=== PATIENT | male | born 1960 | race Caucasian/White ===

== ENCOUNTER 2018-07-18 18:26 | Emergency (ER) | payer OTHER ==
[~2018-07-18] VITALS: Ht 175.3 cm; Wt 108.0 kg
[2018-07-18] MEDS ORDERED: LISINOPRIL-HCT1 EAC2 PO (18:32)
[2018-07-18] MEDS ORDERED: METFORMIN HCL500 MG PO (18:33)
[2018-07-18] MEDS ORDERED: VISTARIL 25 MG25 M1 PO (18:34)
[2018-07-18] MEDS ORDERED: ZANTAC 150MG T150 M1 PO (18:35)
[2018-07-18 18:49] LABS: ABSOLUTE BASOPHILS 0.1 thou/uL (0.0-0.2); ABSOLUTE EOSINOPHILS 0.7 thou/uL (0.0-0.7); ABSOLUTE LYMPHOCYTES 2.6 thou/uL (0.8-5.3); ABSOLUTE MONOCYTES 0.5 thou/uL (0.0-1.2); ABSOLUTE NEUTROPHILS 4.3 thou/uL (1.6-8.1); BASOPHILS 1.3 %; EOSINOPHILS 8.6 %; HEMATOCRIT 47.4 % (42.0-52.0); HEMOGLOBIN 16.1 gm/dL (14.0-18.0); LYMPHOCYTES 31.7 %; MCH 27.7 pg (26.0-34.0); MCV 81.4 fL (80.0-100.0); MONOCYTES 6.3 %; MPV 11.1 fl. (7.2-11.1); NUCLEATED RBCS 0 /100WBC; PLATELET COUNT* 125 thou/uL (150-400); POLYS 52.1 %; RBC 5.82 mil/uL (4.50-6.00); RDW-CV 15.3 % (10.5-14.5); WBC 8.2 thou/uL (4.0-11.0)
[2018-07-18 18:59] LABS: APTT 24.6 Seconds (25.0-31.3); PROTIME 9.9 Seconds (9.20-11.50)
[2018-07-18 19:04] LABS: ANION GAP 15 mmol/L (7-16); BUN 16 mg/dL (7-18); CALCIUM 8.9 mg/dL (8.5-10.1); CHLORIDE 102 mmol/L (98-107); CO2 23 mmol/L (21-32); CREATININE 1.2 mg/dL (0.6-1.3); GLUCOSE 203 mg/dL (70-99); POTASSIUM 3.2 mmol/L (3.5-5.1); SODIUM 140 mmol/L (136-145)
[2018-07-18 19:10] LABS: ALBUMIN 3.6 g/dL (3.4-5.0); ALKALINE PHOSPHATASE 92 U/L (46-116); NT-PRO BRAIN NAT PEPTIDE 23 pg/mL (<300); SGOT 24 U/L (15-37); SGPT 40 U/L (30-65); TOTAL BILIRUBIN 0.3 mg/dL (<0.1-1.0); TOTAL PROTEIN 7.4 g/dL (6.4-8.2); TROPONIN-I LEVEL <0.06 ng/mL (<0.06)
[2018-07-18 20:21] LABS: URINE BILIRUBIN NEGATIVE (Negative); URINE BLOOD NEGATIVE (Negative); URINE CLARITY CLEAR; URINE COLOR YELLOW; URINE GLUCOSE-RANDOM TRACE (Negative); URINE KETONES NEGATIVE (Negative); URINE LEUKOCYTES-REFLEX NEGATIVE (Negative); URINE NITRITE-REFLEX NEGATIVE (Negative); URINE PROTEIN NEGATIVE (Negative); URINE SPECIFIC GRAVITY <= 1.005 (1.005-1.030); URINE UROBILINOGEN 0.2 E.U./dl (0.2-1.0)
[2018-07-18] MEDS ORDERED: VENTOLIN HFA 1818 GM INH (20:32)
[2018-07-18] MEDS ORDERED: PREDNISONE 20 M20 M1 PO (20:32)
[2018-07-18] MEDS ORDERED: ZPAK PO (20:32)
[2018-07-18 20:55] VITALS: BP 128/89
--- NOTE | 2018-07-20 11:37 | EKG ---
[place] [address] ELECTROCARDIOGRAM REPORT Name: ROBYN CLEMENT Room: [facility]#: [id number] Admission: 07/18/18 Attend Phys: Discharge: 07/18/18 Date of : 62 Report #: [id number] THIS REPORT FOR: //name// [facility] ED Test Date: 2018-07-18 Test Time: 18:28:39 Pat Name: ROBYN CLEMENT Department: Room: Gender: M Oil Operator: Ashok BANEGAS : 1960 Requested By: Praveena Navarro Order Number: [id number] MD: Serjio Mejia Measurements Intervals [place] Rate: 83 P: 50 AR: 139 QRS: 37 QRSD: 102 T: 29 QT: 360 QTc: 423 Interpretive Statements Sinus rhythm No previous ECG available for comparison Electronically Signed On 07-20-2018 11:37:28 CDT by Serjio Mejia [email or web address] <ELECTRONICALLY SIGNED> By: Serjio Mejia MD, [facility] 07/20/18 1137 1828 1828 Serjio Mejia MD, FACC /EPI
== END 2018-07-18 20:56 | disposition home or self-care (01) ==
LOC: M.ERS 18:26
PROVIDERS: Nurse Practitioner Family
DX: J18.9 Pneumonia, unspecified organism (principal); E11.9 Type 2 diabetes mellitus without complications; I10 Essential (primary) hypertension; Z90.49 Acquired absence of other specified parts of digestive tract